=== PATIENT | male | born 1960 | race Caucasian/White ===

== ENCOUNTER 2019-03-11 22:42 | Emergency (ER) | payer SELFPAY ==
--- NOTE | 2019-03-11 22:55 | ED ---
Medical Screening - HPI Summary HPI Summary: 58-year-old presents for legal blood draw today. He is brought in by the police. He offers no complaints at this time. No chest pain or shortness of breath. - History of Current Complaint Chief Complaint: EDGeneral Stated Complaint: BLOOD DRAW PER POLICE Time Seen by Provider: 03/11/19 22:51 PMH/Surg Hx/FS Hx/Imm Hx Endocrine/Hematology History: Denies: Hx Anticoagulant Therapy Cardiovascular History: Denies: Hx Myocardial Infarction Infectious Disease History: No Infectious Disease History: Denies: Traveled Outside the [place] in Last 30 Days - Family History Known Family History: Positive: Non-Contributory - Social History Alcohol Use: Occasionally Substance Use Type: Reports: None Smoking Status (MU): Current Every Day Smoker Review of Systems Negative: Fever Negative: Chest Pain Negative: Shortness Of Breath All Other Systems Reviewed And Are Negative: Yes Physical Exam Triage Information Reviewed: Yes Vital Signs On Initial Exam: Initial Vitals Temp Pulse Resp BP Pulse Ox 98.2 F 77 16 138/107 99 03/11/19 22:43 03/11/19 22:43 03/11/19 22:43 03/11/19 22:43 03/11/19 22:43 Vital Signs Reviewed: Yes Appearance: Positive: Well-Appearing Skin: Positive: Warm, Dry Head/Face: Positive: Normal Head/Face Inspection Eyes: Positive: Normal, Conjunctiva Clear ENT: Positive: Pharynx normal Respiratory/Lung Sounds: Positive: Clear to Auscultation, Breath Sounds Present Cardiovascular: Positive: Normal, RRR Musculoskeletal: Positive: Normal Neurological: Positive: Normal Psychiatric: Positive: Normal Diagnostics - Vital Signs Vital Signs Temp Pulse Resp BP Pulse Ox 03/11/19 22:43 98.2 F 77 16 138/107 99 - Laboratory Lab Statement: Any lab studies that have been ordered have been reviewed, and results considered in the medical decision making process. Course/Dx - Course Course Of Treatment: 58-year-old presents for legal blood draw today. He is brought in by the police. He offers no complaints at this time. No chest pain or shortness of breath. On exam has a normal physical exam. Legal blood draw was performed. - Diagnoses Provider Diagnoses: Encounter for medical screening examination Discharge - Sign-Out/Discharge Documenting (check all that apply): Patient Departure Patient Received Moderate/Deep Sedation with Procedure: No - Discharge Plan Condition: Good Disposition: HOME Referrals: No Primary Care Phys,NOPCP [Primary Care Provider] - Additional Instructions: Return to ED if develop any new or worsening symptoms - Billing Disposition and Condition Condition: GOOD Disposition: Home
[2019-03-11 23:05] VITALS: BP 157/107
== END 2019-03-11 23:03 | disposition home or self-care (01) ==
LOC: ED 22:42
DX: Z04.89 Encounter for examination and observation for other specified reasons (principal); F17.210 Nicotine dependence, cigarettes, uncomplicated
CPT/HCPCS: 99282